=== PATIENT | male | born 1965 | race Two or more races ===

== ENCOUNTER 2021-10-22 12:53 | Emergency (ER) | payer OTHER ==
[~2021-10-22] VITALS: Ht 195.6 cm; Wt 133.8 kg
[2021-10-22 12:59] VITALS: BP 157/103
== END 2021-10-22 22:01 | disposition home or self-care (01) ==
LOC: ER 12:53
DX: M51.36 Other intervertebral disc degeneration, lumbar region (principal); M54.12 Radiculopathy, cervical region
CPT/HCPCS: 36415; 72125; 72131; 84484; 85379; 93005